=== PATIENT | female | born 1950 | race Caucasian/White ===

== ENCOUNTER 2017-10-29 14:18 | Outpatient (CLI) | payer MEDICARE, OTHER | END 2017-10-29 14:19 | disposition home or self-care (01) | LOC: BICMAMMO 14:18 | PROVIDERS: ATTEND Family Medicine | DX: Z12.31 Encounter for screening mammogram for malignant neoplasm of breast (principal); Z85.820 Personal history of malignant melanoma of skin | CPT/HCPCS: 77063; 77067 ==

== ENCOUNTER 2019-01-11 16:15 | Emergency (ER) | payer MEDICARE, OTHER | END 2019-01-11 16:35 | disposition home or self-care (01) | LOC: SCSER 16:15 | DX: L03.031 Cellulitis of right toe (principal); E78.5 Hyperlipidemia, unspecified; E78.00 Pure hypercholesterolemia, unspecified; I10 Essential (primary) hypertension; F41.9 Anxiety disorder, unspecified; Z79.899 Other long term (current) drug therapy | CPT/HCPCS: 99283 ==

== ENCOUNTER 2019-01-14 14:02 | Outpatient (CLI) | payer MEDICARE, OTHER ==
--- NOTE | 2019-01-14 16:11 | MMO ---
Bilateral MAMMO Bilat Screen [facility]. CLINICAL HISTORY: Patient is 68 years old and is seen for screening. The patient has no family history of breast cancer. The patient has a history of melanoma at age 62. The patient has a history of right Excisional Biopsy - benign. VIEWS: The views performed were: bilateral craniocaudal with tomosynthesis and bilateral mediolateral oblique with tomosynthesis. FILMS COMPARED: The present examination has been compared to prior imaging studies performed at [facility] on 04/25/2015, 10/24/2015, 10/28/2016 and 10/29/2017. This study has been interpreted with the assistance of computer-aided detection. MAMMOGRAM FINDINGS: There are scattered fibroglandular densities. Benign calcifications are noted bilaterally. Nodularity is stable. There are no suspicious masses, suspicious calcifications, or new areas of architectural distortion. IMPRESSION: THERE IS NO MAMMOGRAPHIC EVIDENCE OF MALIGNANCY. A ROUTINE FOLLOW-UP MAMMOGRAM IN 1 YEAR IS RECOMMENDED. THE RESULTS OF THIS EXAM WERE SENT TO THE PATIENT. ACR BI-RADS Category 2 - Benign finding MAMMOGRAPHY NOTE: 1. A negative mammogram report should not delay a biopsy if a dominant of clinically suspicious mass is present. 2. Approximately 10% to 15% of breast cancers are not detected by mammography. 3. Adenosis and dense breasts may obscure an underlying neoplasm. Reported by: JESSY SULLIVAN MD Electonically Signed: [id number]
== END 2019-01-14 14:03 | disposition home or self-care (01) ==
LOC: BICMAMMO 14:02
PROVIDERS: ATTEND Family Medicine
DX: Z12.31 Encounter for screening mammogram for malignant neoplasm of breast (principal); Z91.89 Other specified personal risk factors, not elsewhere classified; Z85.820 Personal history of malignant melanoma of skin
CPT/HCPCS: 77063; 77067

== ENCOUNTER 2019-01-19 14:13 | Outpatient (CLI) | payer MEDICARE, OTHER ==
--- NOTE | 2019-01-19 15:17 | BD ---
DEXA BONE DENSITOMETRY: (Dual energy x-ray absorptiometry) DATE: 01/19/2019 HISTORY: 68-year old white female for age-related, post-menopausal, osteoporosis screening. weight: 186 lbs height: 71 in. age of menopause: 40 COMPARISON: None available. TECHNIQUE: Because of hardware in lumbar spine, the lumbar spine was not evaluated. Instead, bilateral hips were evaluated. FINDINGS: The bone mineral density (BMD) is given in grams per square centimeter (g/cm2): RIGHT HIP: BMD (g/cm^2) T score Z score Femoral neck: 0.654 -1.8 0.7 Total: 0.862 -0.7 0.9 FRAX WHO fracture risk assessment tool: 10 year fracture risk* Major osteoporotic fracture: 17 % Hip fracture: 2.8 % Reported risk factors: [place] (), neck BMD = 0.654 (g/cm^2), BMI = 25.9, and previous fracture. LEFT HIP: BMD (g/cm^2) T score Z score Femoral neck: 0.704 -1.3 0.5 Total: 0.903 -0.3 1.2 FRAX WHO fracture risk assessment tool: 10 year fracture risk* Major osteoporotic fracture: 15 % Hip fracture: 2.0 % Reported risk factors: [place] (), neck BMD = 0.704 (g/cm^2), BMI = 25.9, and previous fracture. *Fracture probability is calculated for an untreated patient. Fracture probability may be lower if th e patient has received treatment. IMPRESSION: The bone mineral density of the femoral necks is osteopenic. Fracture risk is increased.
== END 2019-01-19 14:14 | disposition home or self-care (01) ==
LOC: BICMAMMO 14:13
PROVIDERS: ATTEND Family Medicine
DX: M81.0 Age-related osteoporosis without current pathological fracture (principal); M85.859 Other specified disorders of bone density and structure, unspecified thigh
CPT/HCPCS: 77080

== ENCOUNTER 2022-06-11 11:25 | Outpatient (CLI) | payer MEDICARE, OTHER | END 2022-06-11 11:26 | disposition home or self-care (01) | LOC: SCSMRI 11:25 | PROVIDERS: ATTEND Specialist | DX: M51.16 Intervertebral disc disorders with radiculopathy, lumbar region (principal); M47.22 Other spondylosis with radiculopathy, cervical region; M47.23 Other spondylosis with radiculopathy, cervicothoracic region; M48.062 Spinal stenosis, lumbar region with neurogenic claudication; M47.897 Other spondylosis, lumbosacral region; M25.78 Osteophyte, vertebrae; R29.890 Loss of height; M50.323 Other cervical disc degeneration at C6-C7 level; M48.02 Spinal stenosis, cervical region; Z98.890 Other specified postprocedural states | CPT/HCPCS: 72141; 72158; 82565 ==